=== PATIENT | male | born 1960 | race African-American/Black ===

== ENCOUNTER 2021-11-28 11:38 | Emergency (ER) | payer OTHER ==
[~2021-11-28] VITALS: Ht 180.3 cm; Wt 94.3 kg
[2021-11-28 11:39] VITALS: BP 163/89
[2021-11-28] MEDS ORDERED: CYCL10TA16 PO (12:04)
[2021-11-28] MEDS ORDERED: NAPR-1180 PO (12:04)
== END 2021-11-28 12:19 | disposition home or self-care (01) ==
LOC: EDH 11:41
DX: M43.6 Torticollis (principal); I10 Essential (primary) hypertension; Z88.8 Allergy status to other drugs, medicaments and biological substances; Z79.899 Other long term (current) drug therapy